=== PATIENT | male | born 1990 | race Caucasian/White ===

== ENCOUNTER 2020-04-02 15:32 | Emergency (ER) | payer OTHER, SELFPAY ==
[2020-04-02 15:35] VITALS: BP 151/109; PULSE 79; RESP 20; TEMP 36.8; O2SAT 96; BMI 46.0
--- NOTE | 2020-04-02 15:47 | XR_ITS ---
PROCEDURE: XR ANKLE LT MIN 3V CLINICAL INDICATION: PAIN COMPARISON: No exams were available for comparison FINDINGS: No fracture or dislocation. No lytic or blastic change. There is normal mineralization. The joint spaces are well-preserved. No significant degenerative/arthritic changes. No erosive changes evident. Other findings:None. IMPRESSION: No acute findings. Dictated by: Johnnie Zheng MD 04/02/2020 16:11 Johnnie Zheng MD in [place] 04/02/2020 16:11
--- NOTE | 2020-04-02 15:47 | XR_ITS ---
PROCEDURE: XR FOOT LT MIN 3V CLINICAL INDICATION: PAIN COMPARISON: No exams were available for comparison FINDINGS: No fracture or dislocation. No lytic or blastic change. There is normal mineralization. The joint spaces are well-preserved. No significant degenerative/arthritic changes. No erosive changes evident. Other findings:There is a type 2 os navicularis IMPRESSION: No acute findings. Dictated by: Johnnie Zheng MD 04/02/2020 16:11 Johnnie Zheng MD in [place] 04/02/2020 16:11
--- NOTE | 2020-04-02 15:52 | HMH.EDUTC ---
[facility] [place] Disposition Clinical Impression: Tendonitis Disposition: Home, Self-Care Condition on Discharge: Good Instructions: Tendonitis (Alternative Therapy), DI for Tendinitis, Ibuprofen Additional Instructions: *RICE, Rest the extremity, Ice 15-20 minutes 3-4 times daily, Compress- wear the estevan wrap as discussed as much as possible to help reduce swelling and pain, Elevate the extremity when at rest *Estevan wrap/Walking boot is for support and help control swelling, use it except in the shower. Be sure that is not to tight but not to loose either *Elevate when resting *Ibuprofen as prescribed as needed for pain an inflammation. If need something more can take Tylenol in between doses of Ibuprofen to help Immediately follow up with your family doctor for new or worsening of symptoms, or no noticeable improvement over the next 3-5 days Crutches to help take weight off foot Call Dr Solorzano office for appointment Return if needed Straight to ER if any life threatening symptoms Prescriptions: Ibuprofen [Ibuprofen 600mg Tablet] 600 mg PO Q6HP PRN #20 tab PRN Reason: Moderate Pain Transmission Status: Received by [facility] Referrals: Donavon Long MD [Primary Care Provider] - Karen Weathers DPM [Staff Physician] - As needed (Call office for appointment) Forms: Work/School Release Time of Disposition: 16:20 Medical Decision Making - Nicolás Inquiry Pt receiving controlled substance: No Nicolás was queried for this patient: No Vital Signs: 04/02/20 15:35 04/02/20 16:23 Temperature 98.2 F 98.2 F Temperature Source Oral Pulse Rate 79 Pulse Rate [Right Brachial] 79 Respiratory Rate 20 20 Blood Pressure 151/109 H Blood Pressure [Right Arm] 151/109 H Blood Pressure Mean [Right Arm] 123 Blood Pressure Source [Right Arm] Automatic Cuff Blood Pressure Position [Right Arm] Sitting 02 Sat by Pulse Oximetry 96 Oxygen Delivery Method Room Air - Radiology Data #1 Image(s): Ankle Image Reviewed: Yes I reviewed the patient's radiology image Preliminary Findings: No Fracture Seen #2 Image(s): Foot/Toes Image Reviewed: Yes I reviewed the patient's radiology image Preliminary Findings: No Fracture Seen - Physician Consults Physician Consulted: Sarahy Time: 16:21 Reason -: Podiatry Eval/Care Comment/Response: Called office and spoke with Bhavani Advised place him in walking bood, crutches and have him call office for appointment [facility] [place] HPI - General Stated complaint: sharp pain in Left foot Time Seen by Provider: 04/02/20 15:52 Mode of Arrival: Ambulatory Source of Information: Patient Limitations: No Limitations Description of Symptoms (Recalled from Triage Doc. by RN): PATIENT C/O PAIN TO DEVIN'S TENDON OF LEFT FOOT SINCE THURSDAY. PAIN WORSENS WHEN MOVING FOOT AND LIFTING LEG. PAIN DOES NOT RADIATE AND PT STATES IT FEEL LIKE NEEDLES . NO KNOWN INJURY HEENT Symptoms (Recalled from RN notes): No Resp Symptoms (Recalled from RN notes): No Skin Symptoms (Recalled from RN notes): No MS Symptoms (Recalled from RN notes): Yes Functional Status (Recalled from RN notes): WNL - History of Present Illness Provider Complaint: Patient state that he was walking around in [facility] on Thursday and noticed he was having some pain and soreness in his heel area States that it has continued to get worse States that he is not having pain when he sits still but when he moves his foot certain ways or walks on it feels like needles and has pain in his tendon area Denies known injury - Related Data Previous Rx's Medication Instructions Recorded Ibuprofen [Ibuprofen 600mg 600 mg PO Q6HP PRN #20 tab 04/02/20 Tablet] Allergies Allergy/AdvReac Type Severity Reaction Status Date / Time No Known Allergies Allergy Verified 02/17/18 12:59 - Worker's Comp Is this a Worker's Comp case?: No [facility] History - Hepatitis A Screen Drug use history?: No High risk sexual behaviors?: No History of
[2020-04-02 16:23] VITALS: BP 151/109; PULSE 79; RESP 20; TEMP 36.8; O2SAT 96
== END 2020-04-02 16:30 | disposition home or self-care (01) ==
PROVIDERS: Emergency Provider Nurse Practitioner; PCP Internal Medicine Adolescent Medicine
DX: M76.62 Achilles tendinitis, left leg (principal)
CPT/HCPCS: 29515; 73610; 73630; 99202; G0463

== ENCOUNTER 2020-09-23 15:52 | Emergency (ER) | payer OTHER, SELFPAY ==
[2020-09-23 16:53] VITALS: BP 149/93; PULSE 77; RESP 18; TEMP 36.8; O2SAT 98; BMI 47.4
--- NOTE | 2020-09-23 17:03 | HMH.EDUTC ---
[facility] [place] Clinical Impression: Headache Qualifiers: Headache type: unspecified Headache chronicity pattern: unspecified pattern Intractability: not intractable Qualified Code(s): R51.9 - Headache, unspecified Diarrhea Qualifiers: Diarrhea type: unspecified type Qualified Code(s): R19.7 - Diarrhea, unspecified Disposition: Home, Self-Care Condition on Discharge: Good Instructions: Preventing the Spread of Coronavirus Discharge Instructions Additional Instructions: You have been tested for COVID19. Please isolate yourself as if you are positive until test results received. Referrals: Donavon Long MD [Primary Care Provider] - Time of Disposition: 17:30 Medical Decision Making - Nicolás Inquiry Pt receiving controlled substance: No Vital Signs: 09/23/20 16:53 Temperature 98.3 F Temperature Source Oral Pulse Rate [Right] 77 Respiratory Rate 18 Blood Pressure [Right Arm] 149/93 H Blood Pressure Mean [Right Arm] 111 02 Sat by Pulse Oximetry 98 - Lab Data Lab results reviewed: Yes: I reviewed the patient's lab results. Lab Results 09/23/20 17:17: Strep Scn Rapid Clinic Negative Orders (Tests/Meds): ORDERS Category Date Time Status Covid-19 Nasal PCR ([facility]) Routine Lab 09/23/20 16:43 Received Strep Screen Confirmation Stat Micro 09/23/20 17:17 Received [facility] [place] HPI - General Stated complaint: dizzy, diah,fever Time Seen by Provider: 09/23/20 17:14 - History of Present Illness Provider Complaint: Headache, fever, body aches, diarrhea, fatigue X 2-3 days. No vomiting. No loss of taste or smell. No known exposure to COVID19 but works at a [employer]. Onset (ago): day(s) (3) Location: head Relieving factors: none Exacerbating factors: none Associated symptoms: fever/chills Treatments prior to arrival: none - Related Data Previous Rx's Medication Instructions Recorded Ibuprofen [Ibuprofen 600mg 600 mg PO Q6HP PRN #20 tab 04/02/20 Tablet] Allergies Allergy/AdvReac Type Severity Reaction Status Date / Time No Known Allergies Allergy Verified 02/17/18 12:59 [facility] History - Hepatitis A Screen Attestation statement:: This patient has been screened for Hepatitis A risk factors. I have reviewed the patient's past medical history: Yes Medical History: Denies:: Cancer, Diabetes Mellitus Type 1, Diabetes Mellitus Type 2, MRSA Other Surgeries: Yes: No Previous Surgery Amputation: No Fractures: No - Social History Smoking Status: Never smoker Alcohol Intake: never Alcohol Intake Frequency:: holidays/special occasions only Occupational Status: other Housing: house Household Members: family Family Hx:: Cancer ROS Obtained: Yes All systems reviewed & no additional complaints - Constitutional Constitutional: Reports body ache, Reports chills, Reports fever(s), Reports headache(s), Reports malaise - ENT Ears, Nose, Mouth, and Throat: Reports sore throat - Respiratory Respiratory: Reports cough - Gastrointestinal Gastrointestingal: Reports: loose stools Physical Exam - General General appearance: alert, in no apparent distress - Head Head exam: normocephalic - Eye Eye exam: Present: PERRL - ENT ENT exam: Present: TM's normal bilaterally - Expanded ENT Exam Throat exam: Present: tonsillar erythema - Neck Neck exam: Present: normal inspection. Absent: lymphadenopathy - Chest Chest inspection: Present: normal inspection, symmetric chest wall rise - Respiratory Respiratory exam: Present: normal lung sounds bilaterally - Cardiovascular Cardiovascular exam: Present: regular rate, normal rhythm - Abdominal Exam Abdominal exam: Present: soft, hyperactive bowel sounds - Neurological Exam Neurological exam: Present: alert, oriented X3 - Psychiatric Psychiatric exam: Present: normal affect, normal mood - Skin Skin exam: Present: warm, dry, intact
[2020-09-23 17:27] LABS: UTC Strep Screen (Rapid) Negative (Negative)
[2020-09-23 17:58] VITALS: BP 122/71; PULSE 76; RESP 16; TEMP 36.9; O2SAT 98
--- NOTE | 2020-09-24 11:46 | PC.NURSE ---
Pt called and got results of covid swab
== END 2020-09-23 17:47 | disposition home or self-care (01) ==
PROVIDERS: Emergency Provider Physician Assistant; PCP Internal Medicine Adolescent Medicine
DX: R42 Dizziness and giddiness (principal); Z20.822 Contact with and (suspected) exposure to COVID-19
CPT/HCPCS: 87880; 99202; G0463; U0003

== ENCOUNTER 2020-10-18 08:14 | Emergency (ER) | payer OTHER, SELFPAY ==
[2020-10-18 08:14] VITALS: BP 167/90; PULSE 74; RESP 18; TEMP 36.8; O2SAT 98; BMI 46.0
--- NOTE | 2020-10-18 08:39 | HMH.EDGENADL ---
ED Disposition Clinical Impression: Rash and nonspecific skin eruption Disposition: Home, Self-Care Condition on Discharge: Good Instructions: DI for Rash Additional Instructions: Prednisone and hydroxyzine as prescribed. Follow-up with primary care provider if not improving in 2 to 3 days. Prescriptions: hydrOXYzine pamoate [Hydroxyzine Pamoate] 50 mg PO Q6H 5 Days #20 cap Transmission Status: Pending to [facility] predniSONE [Prednisone 20mg Tab] 20 mg PO BID #10 tab Transmission Status: Pending to [facility] Referrals: Donavon Long MD [Primary Care Provider] - Forms: Work/School Release - Critical Care Critical Care Time: No Attestation: On 10/18/20, the high probability of a clinically significant, sudden or life threatening deterioration of the following system(s) required my full and direct attention, intervention and personal management. The time I documented below is in addition to time spent performing reported procedures but includes the following listed in this critical care notation. Medical Decision Making - Nicolás Inquiry Pt receiving controlled substance: No Vital Signs: 10/18/20 08:14 Temperature 98.3 F Temperature Source Oral Pulse Rate [Right] 74 Respiratory Rate 18 Blood Pressure [Right Arm] 167/90 H Blood Pressure Mean [Right Arm] 115 02 Sat by Pulse Oximetry 98 Oxygen Delivery Method Room Air General Adult HPI - General Chief complaint: Allergic Reaction Stated complaint: rash Time Seen by Provider: 10/18/20 08:39 Mode of Arrival: Family Vehicle Limitations: No Limitations Description of Symptoms (Recalled from ER Triage Doc. by RN): Patient c/o a rash that is diffuse throughout his body for the last two days. Patient denies any known allergen exposure. Patient denies any respiratory difficulty or facial swelling. - History of Present Illness HPI narrative: Complains of pruritic rash that started yesterday morning, initially on the dorsum of his left hand, but now is diffuse. No known exposures. No new medications. No history of similar rashes. No other associated symptoms. Denies fever, sore throat, URI symptoms, vomiting, diarrhea, joint pains or swelling, difficulty breathing, swelling of lips or throat. He has tried Benadryl without improvement. - Related Data Previous Rx's Medication Instructions Recorded Ibuprofen [Ibuprofen 600mg 600 mg PO Q6HP PRN #20 tab 04/02/20 Tablet] hydrOXYzine pamoate [Hydroxyzine 50 mg PO Q6H 5 Days #20 cap 10/18/20 Pamoate] predniSONE [Prednisone 20mg 20 mg PO BID #10 tab 10/18/20 Tab] Allergies Allergy/AdvReac Type Severity Reaction Status Date / Time No Known Allergies Allergy Verified 02/17/18 12:59 [facility] History - Hepatitis A Screen Drug use history?: No High risk sexual behaviors?: No History of sexually transmitted infection?: No Currently employed?: No Childcare worker?: No Do you have indoor plumbing?: Yes Do you have electricity?: Yes Attestation statement:: This patient has been screened for Hepatitis A risk factors. I have reviewed the patient's past medical history: Yes Medical History: Denies:: Cancer, Diabetes Mellitus Type 1, Diabetes Mellitus Type 2, MRSA Other Surgeries: Yes: No Previous Surgery Amputation: No Fractures: No - Social History Smoking Status: Never smoker Alcohol Intake: never Alcohol Intake Frequency:: holidays/special occasions only Occupational Status: other Housing: house Household Members: family Family Hx:: Cancer ROS Obtained: Yes All systems reviewed & no additional complaints - Constitutional Constitutional: Denies body ache, Denies chills, Denies fever(s) - ENT Ears, Nose, Mouth, and Throat: Denies difficulty swallowing, Denies nasal discharge, Denies sore throat, Denies throat swelling - Cardiovascular Cardiovascular: Denies chest pain - Respiratory Respiratory: Denies cough, Denies dyspnea - Gastrointes
[2020-10-18 09:19] VITALS: BP 146/71; PULSE 78; RESP 18; TEMP 36.8; O2SAT 98
== END 2020-10-18 09:11 | disposition home or self-care (01) ==
PROVIDERS: Emergency Provider Emergency Medicine; PCP Internal Medicine Adolescent Medicine
DX: R21 Rash and other nonspecific skin eruption (principal)
CPT/HCPCS: 99281

== ENCOUNTER 2021-03-12 06:17 | Emergency (ER) | payer BC, SELFPAY ==
[2021-03-12 06:19] VITALS: BP 152/102; PULSE 130; RESP 16; TEMP 37.8; O2SAT 97; BMI 47.4
--- NOTE | 2021-03-12 06:29 | XR_ITS ---
FINAL REPORT CLINICAL HISTORY: fever FINDINGS: Two views of the chest were obtained. The heart size and pulmonary vascularity are within normal limits. The mediastinum is normal. No acute pulmonary abnormality is identified. There is no pneumothorax. The bony thorax is intact. IMPRESSION: No active cardiopulmonary disease. Reviewed, Interpreted and Dictated by Rodrigue Dudley III, MD Transcribed by Bonnie Simental Authenticated by Rodrigue Dudley III, MD on 03/12/2021 07:42:[address] [facility]
[2021-03-12 06:46] LABS: Influenza A, PCR Not Detected (NotDetected); Influenza B, PCR Not Detected (NotDetected)
[2021-03-12 06:51] LABS: Basophils # 0.1 K/mm3 (0-0.2); Eosinophils # 0.1 K/mm3 (0.0-0.4); Eosinophils % 1.9 % (0.1-12.0); Hematocrit 55.3 % (42.0-52.0); Lymphocytes # 0.6 K/mm3 (0.7-4.5); Lymphocytes % 8.9 % (10-50); Mean Corpuscular HGB Conc 33.3 g/dL (31.8-35.4); Mean Corpuscular Hemoglobin 30.8 pg (27.0-31.2); Mean Corpuscular Volume 92.5 fl (80-94); Monocytes # 0.5 K/mm3 (0.1-1.0); Monocytes % 6.9 % (1.7-9.3); Neutrophils # 5.7 K/mm3 (1.8-7.8); Neutrophils % 81.3 % (37.0-80.0); Platelet Count 260 K/mm3 (142-424); Red Blood Count 5.97 M/mm3 (4.60-6.20); Red Cell Distribution Width 13.2 % (11.5-17.5)
--- NOTE | 2021-03-12 06:51 | HMH.EDWEAK ---
ED Disposition Clinical Impression: COVID-19 Disposition: Home, Self-Care Condition on Discharge: Good Instructions: DI for COVID-19 (Suspected or Confirmed ) Additional Instructions: use meds and see pcp for follow up Referrals: Donavon Long MD [Primary Care Provider] - - Critical Care Critical Care Time: No Attestation: On 03/12/21, the high probability of a clinically significant, sudden or life threatening deterioration of the following system(s) required my full and direct attention, intervention and personal management. The time I documented below is in addition to time spent performing reported procedures but includes the following listed in this critical care notation. Medical Decision Making - Medical Records Medical records reviewed: Yes: I reviewed the patient's medical records. - Nicolás Inquiry Pt receiving controlled substance: No Vital Signs: 03/12/21 06:19 Temperature 100.1 F H Temperature Source Oral Pulse Rate [Right] 130 H Respiratory Rate 16 Blood Pressure [Right Arm] 152/102 H Blood Pressure Mean [Right Arm] 118 02 Sat by Pulse Oximetry 97 - Lab Data Lab results reviewed: Yes: I reviewed the patient's lab results. Lab Results 03/12/21 06:35: WBC 7.0, RBC 5.97, Hct 55.3 H, MCV 92.5, MCH 30.8, MCHC 33.3, RDW 13.2, Plt Count 260, MPV 9.0, Neut % (Auto) 81.3 H, Lymph % (Auto) 8.9 L, Whitman % (Auto) 6.9, Eos % (Auto) 1.9, Baso % (Auto) 1.0, Neut # (Auto) 5.7, Lymph # (Auto) 0.6 L, Whitman # (Auto) 0.5, Eos # (Auto) 0.1, Baso # (Auto) 0.1, ESR 5 03/12/21 06:35: Sodium 141, Potassium 4.2, Chloride 97 L, Carbon Dioxide 31 H, Anion Gap 17.2 H, BUN 16, Creatinine 1.20, Estimated Creat Clear 95, Estimated GFR 71, Est GFR ( Amer) 85, Glucose 85, Calcium 10.3 H, Total Bilirubin 0.6, AST 39, ALT 59, Alkaline Phosphatase 73, C-Reactive Protein 5.5 H, Total Protein 9.8 H, Albumin 5.4 H, Globulin 4.4 H, Albumin/Globulin Ratio 1.2 03/12/21 06:35: SARS-CoV-2 (PCR) Detected A, Influenza A Untype (PCR) Not detected, Influenza Type B (PCR) Not detected Result diagrams: 03/12/21 06:35 03/12/21 06:35 Orders (Tests/Meds): ED MEDICATIONS Generic Name Dose Route Start Last Admin Trade Name Freq PRN Reason Stop Dose Admin Sodium Chloride 1,000 mls @ 999 mls/hr 03/12/21 06:45 03/12/21 06:40 Sod Chlor 0.9% 1000ml Bag IV 03/12/21 07:45 999 mls/hr .Q1H1M LUCILA Administration Discontinued Medications Generic Name Dose Route Start Last Admin Trade Name Freq PRN Reason Stop Dose Admin Dexamethasone Sodium Phosphate 10 mg 03/12/21 06:31 03/12/21 06:39 Dexamethasone 4mg/Ml 1ml Vial IV 03/12/21 06:32 10 mg ONCE ONE Administration Ketorolac Tromethamine 30 mg 03/12/21 06:31 03/12/21 06:40 Ketorolac 30mg/Ml Vial IV 03/12/21 06:32 30 mg ONCE ONE Administration ORDERS Category Date Time Status XR chest 2V Stat Exams 03/12/21 06:29 Taken C-Reactive Protein Stat Lab 03/12/21 06:35 Results Complete Blood Count Auto Diff Stat Lab 03/12/21 06:35 Results Comprehensive Metabolic Panel Stat Lab 03/12/21 06:35 Results Erythrocyte Sedimentation Rate Stat Lab 03/12/21 06:35 Results Procalcitonin Stat Lab 03/12/21 06:35 Results UA [Urinalysis and Microscopic] Stat Lab 03/12/21 06:58 Received - Radiology Data #1 Image(s): Chest Image Reviewed: Yes I reviewed the patient's radiology image Preliminary Findings: Normal/NAD Medical Decision Narrative: pt has covid-19 and stable exam and labs Weakness HPI - General Chief complaint: Weakness Stated complaint: sore throat, dizzy, SOA, CUTLER Time Seen by Provider: 03/12/21 06:40 Mode of Arrival: Ambulatory Source of Information: Patient, Medical Record Limitations: No Limitations Description of Symptoms (Recalled from ER Triage Doc. by RN): pt c/o SOA, cough, body aches, CUTLER that started this morning - History of Present Illness HPI Narrative: sore throat with uri sx which started yesterday - re
[2021-03-12 06:57] LABS: Alanine Aminotransferase 59 U/L (12-78); Albumin Level 5.4 g/dl (3.5-5.0); Albumin/Globulin Ratio 1.2 (1.1-1.8); Alkaline Phosphatase 73 U/L (38-126); Anion Gap 17.2 mEq/L (5-15); Aspartate Amino Transferase 39 U/L (17-59); Bilirubin,Total 0.6 mg/dl (0.2-1.3); Blood Urea Nitrogen 16 mg/dl (9-20); Calcium 10.3 mg/dl (8.4-10.2); Carbon Dioxide 31 mmol/L (22.0-30.0); Chloride 97 mmol/L (98-107); Creatinine Clearance Estimated 95 mL/min (50-200); Estimated Glomerular Filt Rate 71 ml/min (>60); GFR (African American) 85 ML/MIN (>60); Globulin 4.4 g/dL (1.3-3.2); Glucose 85 mg/dl (74-100); Potassium 4.2 mmoL/L (3.5-5.1); Sodium 141 mmol/L (136-145); Total Protein,Serum 9.8 g/dl (6.3-8.2)
[2021-03-12 07:03] LABS: C-Reactive Protein 5.5 mg/L (0-4)
[2021-03-12 07:09] LABS: Microscopic, Urine URINE MICROSCOPIC (MICROSCOPIC)
[2021-03-12 07:11] LABS: Coronavirus 19, PCR Detected (NotDetected)
[2021-03-12 07:14] LABS: Erythrocyte Sedimentation Rate 5 mm/hr (0-15)
[2021-03-12 07:17] LABS: Procalcitonin 0.059 ng/mL (0.0-2.0)
[2021-03-12 07:17] LABS: Appearance,Urine CLEAR (Clear); Bilirubin,Urine Negative (Negative); Blood, Urine 2+ (Negative); Color,Urine YELLOW (Yellow); Glucose,Urine (UA) Negative (Negative); Ketones,Urine Negative (Negative); Leukocyte Esterase,Urine Negative (Negative); Nitrate,Urine Negative (Negative); Protein,Urine Negative (Negative); Urobilinogen,Urine 0.2 EU/dl (0.2)
[2021-03-12 07:22] LABS: Hemoglobin 18.4 g/dL (14.1-18.0)
[2021-03-12 07:23] LABS: Squamous Epithelial Cell,Urine Occasional #/hpf (0-5)
[2021-03-12 07:38] VITALS: BP 148/89; PULSE 93; RESP 18; TEMP 37.2; O2SAT 95
== END 2021-03-12 07:40 | disposition home or self-care (01) ==
PROVIDERS: Emergency Provider Emergency Medicine; PCP Internal Medicine Adolescent Medicine
DX: U07.1 COVID-19 (principal)
CPT/HCPCS: 71046; 80053; 81001; 84145; 85025; 85651; 86140; 96365; 96375; 99283; C9803; U0003; U0005

== ENCOUNTER 2022-06-03 05:49 | Emergency (ER) | payer BC, SELFPAY ==
[2022-06-03 05:50] VITALS: BP 162/90; PULSE 79; RESP 20; TEMP 36.9; O2SAT 98; BMI 41.1
[2022-06-03 06:00] VITALS: PULSE 72; O2SAT 97
[2022-06-03 06:08] VITALS: BMI 41.1
--- NOTE | 2022-06-03 06:08 | XR_ITS ---
PROCEDURE INFORMATION: Exam: XR Left Ribs Exam date and time: 06/03/2022 6:06 AM Age: 31 years old Clinical indication: Chest wall pain; Patient HX: PT states left sided pain with deep breathing and movement TECHNIQUE: Imaging protocol: Radiologic exam of the left ribs. Views: 2 views. COMPARISON: CR XR CHEST 2V 06/03/2022 6:04 AM FINDINGS: Bones/joints: Normal. Soft tissues: Normal. IMPRESSION: No acute findings.
--- NOTE | 2022-06-03 06:08 | XR_ITS ---
PROCEDURE INFORMATION: Exam: XR Chest Exam date and time: 06/03/2022 6:04 AM Age: 31 years old Clinical indication: Left-sided; Patient HX: C/O left sided pain with deep breathing and movement TECHNIQUE: Imaging protocol: Radiologic exam of the chest. Views: 2 views. COMPARISON: CR XR CHEST 2V 03/12/2021 6:28 AM FINDINGS: Lungs: No focal airspace disease. Pleural spaces: Unremarkable. No pleural effusion. No pneumothorax. Heart/Mediastinum: Cardiomediastinal silhouette is within normal limits. Bones/joints: Unremarkable. IMPRESSION: No acute cardiopulmonary abnormality.
--- NOTE | 2022-06-03 06:11 | PC.NURSE ---
Pt over to X-ray
[2022-06-03 06:30] VITALS: PULSE 73; O2SAT 98
--- NOTE | 2022-06-03 07:02 | PC.NURSE ---
Called radiology to check status of xr read, they are chatting vrad
--- NOTE | 2022-06-03 07:06 | CT_ITS ---
FINAL REPORT TECHNIQUE: The patient was injected with IV contrast. Axial images were obtained through the chest in a PE protocol. 3-D reconstruction images were also performed. Individualized dose reduction techniques using automated exposure control or adjustment of the MA and/or KV according to patient's size were employed. CLINICAL HISTORY: pain with deep inspiration, Left lower rib back FINDINGS: Mediastinal vasculature is adequately opacified. No pulmonary artery filling defects are identified to suggest PE. There is no aortic dissection. There is no axillary adenopathy. There is no hilar or mediastinal adenopathy. The heart size is normal. There is no pericardial or pleural effusion. Limited images of the upper abdomen are unremarkable. No suspicious infiltrate or nodule is identified. IMPRESSION: No pulmonary embolus or dissection. Reviewed, Interpreted and Dictated by Remi Mar MD Transcribed by Alma Chew Authenticated and [facility]
--- NOTE | 2022-06-03 07:12 | HMH.EDGENADL ---
Discharge Plan Disposition Patient Disposition: Home, Self-Care Condition: Good Prescriptions Prescriptions: New diclofenac potassium 25 mg tablet 25 mg PO BID 10 Days Qty: 20 0RF cyclobenzaprine 10 mg tablet 10 mg PO HS Qty: 14 0RF Referrals Follow up/Referrals: Donavon Long MD [Primary Care Provider] - See instructions Clinical Impressions Clinical Impression: Pleurisy Instructions Patient Instructions: DI for Pleurisy Print Language Print Language: Yakut Discharge ED Provider: Gallito MARTEL)George Adult HPI <George MARTEL)MD - Last Filed: 06/03/22 08:50> General Chief complaint: PAIN Stated complaint: upper abdominal pain; middle back pain Time Seen by Provider: 06/03/22 07:00 Mode of Arrival: Family Vehicle Source of Information: Patient, Spouse and Medical Record Limitations: No Limitations Description of Symptoms (Recalled from ER Triage Doc. by RN): Pt c/o burning pain to lower left ribs & left side of mid back. Denies any trauma, falls, or injury. The pain is reproducible with palpation, movement, and when taking a deep breath. Denies chest pain or inspiratory pain to lungs. Denies any fever, chills, or n/v/d. Denies cough. History of Present Illness HPI narrative: lt costal pain with sob and inc with insp - no rash or fever Onset (ago): day(s) Location: chest Severity: moderate Associated symptoms: denies other symptoms Related Data Previous Rx's Medication Instructions Recorded cyclobenzaprine 10 mg tablet 10 mg PO HS #14 tabs 06/03/22 diclofenac potassium 25 mg tablet 25 mg PO BID 10 days #20 tabs 06/03/22 Allergies Allergy/AdvReac Type Severity Reaction Status Date / Time No Known Allergies Allergy Verified 12/11/20 11:18 PFSH <George Conti MD (ED) - Last Filed: 06/03/22 08:50> [facility] Disclaimer: The information contained in this section may have been updated after the patient was seen, as this information can be updated by other users. Social History Smoking Status: Never smoker alcohol intake: never current occupational status: other Travel in the last 8 weeks: None household members: family housing: house <George MARTEL)MD - Last Filed: 06/03/22 08:50> ROS Obtained: Yes All systems reviewed & no additional complaints except as documented Physical Exam <George Conti (ED)MD - Last Filed: 06/03/22 08:50> General General appearance: alert Head Head exam: normocephalic Eye Eye exam: Present PERRL and EOMI ENT ENT exam: Present mucous membranes moist Neck Neck exam: Present trachea midline Chest Chest inspection: Present tenderness; Absent rash Respiratory Respiratory exam: Present normal lung sounds bilaterally; Absent respiratory distress Cardiovascular Cardiovascular exam: Present regular rate; Absent systolic murmur Abdominal Exam Abdominal exam: Present soft; Absent tenderness Extremities Exam Extremities exam: Present full ROM Neurological Exam Neurological exam: Present alert, oriented X3 and CN II-XII intact; Absent motor sensory deficit Psychiatric Psychiatric exam: Present normal affect Skin Skin exam: Absent rash Medical Decision Making <George Conti (ED)MD - Last Filed: 06/03/22 08:50> Medical Records Medical records reviewed: Yes I reviewed the patient's medical records. Nicolás Inquiry Pt receiving controlled substance: No Vital Signs: 06/03/22 05:50 06/03/22 06:00 06/03/22 06:30 Temperature 98.5 F Temperature Source Oral Pulse Rate 72 73 Pulse Rate [Right] 79 Respiratory Rate 20 Blood Pressure Blood Pressure [Right Arm] 162/90 H Blood Pressure Mean [Right Arm] 114 Blood Pressure Source Blood Pressure Source [Right Arm] Automatic Cuff Blood Pressure Position 02 Sat by Pulse Oximetry 98 97 98 Oxygen Delivery Method Room Air 06/03/22 08:36 Temperature Temperature Source Pulse Rate 67 Pulse Rate [Right] Respiratory Rate 18 B
--- NOTE | 2022-06-03 07:15 | PC.NURSE ---
notified radiology of ct ordered
--- NOTE | 2022-06-03 07:20 | PC.NURSE ---
Saline lock established at this time and updated on POC and what tests MD was going to order. Call light within reach and patient had no other needs.
[2022-06-03 07:27] LABS: Basophils # 0.1 K/mm3 (0-0.2); Basophils % 0.9 % (0.1-2.0); Eosinophils # 0.2 K/mm3 (0.0-0.4); Eosinophils % 2.8 % (0.1-12.0); Hematocrit 49.1 % (42.0-52.0); Lymphocytes # 2.6 K/mm3 (0.7-4.5); Mean Corpuscular HGB Conc 32.6 g/dL (31.8-35.4); Mean Corpuscular Hemoglobin 29.7 pg (27.0-31.2); Mean Corpuscular Volume 91.2 fl (80-94); Mean Platelet Volume 8.4 fl (7.4-10.4); Monocytes # 0.6 K/mm3 (0.1-1.0); Monocytes % 8.1 % (1.7-9.3); Neutrophils # 3.9 K/mm3 (1.8-7.8); Neutrophils % 53.2 % (37.0-80.0); Platelet Count 223 K/mm3 (142-424); Red Blood Count 5.39 M/mm3 (4.60-6.20); Red Cell Distribution Width 13.3 % (11.5-17.5); White Blood Count 7.4 K/mm3 (4.8-10.8)
[2022-06-03 07:33] LABS: Chloride 102 mmol/L (98-107); Potassium 4.5 mmoL/L (3.5-5.1); Sodium 138 mmol/L (136-145)
[2022-06-03 07:36] LABS: Alanine Aminotransferase 30 U/L (12-78); Albumin Level 4.4 g/dl (3.5-5.0); Albumin/Globulin Ratio 1.4 (1.1-1.8); Alkaline Phosphatase 53 U/L (38-126); Anion Gap 9.5 mEq/L (5-15); Aspartate Amino Transferase 26 U/L (17-59); Bilirubin,Total 0.4 mg/dl (0.2-1.3); Blood Urea Nitrogen 21 mg/dl (9-20); Calcium 9.2 mg/dl (8.4-10.2); Carbon Dioxide 31 mmol/L (22.0-30.0); Creatinine Clearance Estimated 126 mL/min (50-200); Estimated Glomerular Filt Rate 98 ml/min (>60); GFR (African American) 118 ML/MIN (>60); Globulin 3.1 g/dL (1.3-3.2); Glucose 85 mg/dl (74-100); Total Protein,Serum 7.5 g/dl (6.3-8.2)
--- NOTE | 2022-06-03 07:50 | PC.NURSE ---
pt return from CT
[2022-06-03 08:36] VITALS: BP 144/99; PULSE 67; RESP 18; O2SAT 99
--- NOTE | 2022-06-03 08:39 | PC.NURSE ---
contacted rad to check on status of CT report, states she will check on it.
--- NOTE | 2022-06-03 09:03 | PC.NURSE ---
checked on pt at this time, pt resting in bed, visitor at BS, states no needs at this time. Updated pt we are waiting on CT results
--- NOTE | 2022-06-03 09:04 | PC.NURSE ---
spoke with radiology again at this time, report CT is in locked status so she be read soon.
[2022-06-03 09:32] VITALS: BP 143/91; PULSE 69; RESP 18; TEMP 36.7; O2SAT 99
== END 2022-06-03 09:34 | disposition home or self-care (01) ==
PROVIDERS: Emergency Provider Emergency Medicine; PCP Internal Medicine Adolescent Medicine
DX: R09.1 Pleurisy (principal); R10.10 Upper abdominal pain, unspecified
CPT/HCPCS: 71046; 71100; 71275; 80053; 85025; 96374; 96375; 99284; 99285; Q9967

== ENCOUNTER 2022-10-21 01:58 | Emergency (ER) | payer BC, SELFPAY ==
[2022-10-21 02:00] VITALS: BP 139/95; PULSE 90; RESP 20; TEMP 37.1; O2SAT 97; BMI 38.3
--- NOTE | 2022-10-21 02:09 | PC.NURSE ---
in room speaking with patient at this time.
--- NOTE | 2022-10-21 02:16 | HMH.EDGENADL ---
Discharge Plan Disposition Patient Disposition: Home, Self-Care Condition: Good Prescriptions Prescriptions: New amoxicillin 500 mg capsule 500 mg PO Q8H 7 Days Qty: 21 0RF No Action diclofenac potassium 25 mg tablet 25 mg PO BID 10 Days Qty: 20 0RF cyclobenzaprine 10 mg tablet 10 mg PO HS Qty: 14 0RF Referrals Follow up/Referrals: Donavon Long MD [Primary Care Provider] - See instructions Activity Restrictions/Add. Instructions Additional Instructions/Restrictions: Please take antibiotics as prescribed for right ear infection. Please follow-up with your primary care provider. Please return to the emergency department if you develop any new or worsening symptoms or become concerned for your health. Clinical Impressions Clinical Impression: Otitis media of right ear Discharge ED Provider: Mendoza Wilson Adult HPI General Chief complaint: Upper Respiratory Infection Stated complaint: throat swelling, facial numbness, ear pain Time Seen by Provider: 10/21/22 02:08 Mode of Arrival: Ambulatory Source of Information: Patient Limitations: No Limitations Description of Symptoms (Recalled from ER Triage Doc. by RN): pt reports 2 days of right ear and throat pain, states its hurts to swallow, chills and fever History of Present Illness HPI narrative: 32-year-old male reported previously healthy presents with couple days of throat pain and right-sided facial pain, reports that he had onset of difficulty breathing that lasted approximate 10 to 15-minute with associated right-sided neck/throat pain and right ear pain. This prompted him to come in tonight. No reported fever at home. Patient has been taking [id number] cold medication but has not had any other medications. Currently has no difficulty breathing. Related Data Previous Rx's Medication Instructions Recorded cyclobenzaprine 10 mg tablet 10 mg PO HS #14 tabs 06/03/22 diclofenac potassium 25 mg tablet 25 mg PO BID 10 days #20 tabs 06/03/22 amoxicillin 500 mg capsule 500 mg PO Q8H 7 days #21 caps 10/21/22 Allergies Allergy/AdvReac Type Severity Reaction Status Date / Time No Known Allergies Allergy Verified 12/11/20 11:18 [facility] Disclaimer: The information contained in this section may have been updated after the patient was seen, as this information can be updated by other users. Social History Smoking Status: Never smoker alcohol intake: never current occupational status: other Travel in the last 8 weeks: None household members: family housing: house ROS Obtained: Yes All systems reviewed & no additional complaints except as documented Physical Exam General General appearance: alert and in no apparent distress Head Head exam: atraumatic and normocephalic Eye Eye exam: Present normal appearance, PERRL and EOMI ENT ENT exam: Present normal oropharynx (Mild oropharyngeal erythema with bilateral tonsillar enlargement, no exudate, no pillar depression) and other (Right TM erythematous, bulging, opaque. Canal normal, no mastoid tenderness.) Neck Neck exam: Present normal inspection, full ROM and lymphadenopathy (Small, right-sided) Chest Chest inspection: Present normal inspection and symmetric chest wall rise; Absent tenderness Respiratory Respiratory exam: Present normal lung sounds bilaterally; Absent respiratory distress Cardiovascular Cardiovascular exam: Present regular rate and normal rhythm Abdominal Exam Abdominal exam: Present soft; Absent distention, tenderness or guarding Extremities Exam Extremities exam: Present normal inspection; Absent edema or joint swelling Back Exam Back exam: Present normal inspection; Absent tenderness Neurological Exam Neurological exam: Present alert and oriented X3; Absent motor sensory deficit Psychiatric Psychiatric exam: Present normal affect and normal mood Skin Skin exam: Present warm, dry and normal color Lymphatic Lymphatic Findings: no adenopa
[2022-10-21 02:30] VITALS: BP 137/81; PULSE 87; RESP 18; TEMP 37.1; O2SAT 97
[2022-10-21 02:32] VITALS: BP 139/99; PULSE 90; RESP 20; TEMP 37.1
== END 2022-10-21 02:34 | disposition home or self-care (01) ==
PROVIDERS: Emergency Provider Emergency Medicine; PCP Internal Medicine Adolescent Medicine
DX: H66.91 Otitis media, unspecified, right ear (principal); R22.1 Localized swelling, mass and lump, neck
CPT/HCPCS: 99283

== ENCOUNTER 2022-12-04 05:08 | Emergency (ER) | payer BC, SELFPAY ==
[2022-12-04 05:09] VITALS: BP 157/97; PULSE 68; RESP 18; TEMP 36.6; O2SAT 97; BMI 39.6
--- NOTE | 2022-12-04 05:30 | HMH.EDGENADL ---
Discharge Plan Disposition Patient Disposition: Home, Self-Care Prescriptions Prescriptions: New lidocaine 5 % adhesive patch,medicated 1 patch topical DAILY PRN (Reason: pain) Qty: 30 0RF Rx Instructions: leave on most painful area for up to 12 hrs methocarbamol 500 mg tablet 500 mg PO Q6H PRN (Reason: pain) Qty: 30 0RF No Action diclofenac potassium 25 mg tablet 25 mg PO BID 10 Days Qty: 20 0RF cyclobenzaprine 10 mg tablet 10 mg PO HS Qty: 14 0RF amoxicillin 500 mg capsule 500 mg PO Q8H 7 Days Qty: 21 0RF Referrals Follow up/Referrals: Donavon Long MD [Primary Care Provider] - See instructions Activity Restrictions/Add. Instructions Additional Instructions/Restrictions: You have strained the muscles in the extensor part of your left forearm. This is an overuse injury. This will only heal if you reduce the use of the arm and allow those muscles and ligaments time to heal. Recommend not lifting any weight that worsens the pain. Recommend limiting the movement of the wrist and forearm as needed to limit pain. Use wrist brace as needed. Clinical Impressions Clinical Impression: Muscle strain of forearm Qualifiers: Encounter type: initial encounter Laterality: left Qualified Code(s): S56.912A - Strain of unspecified muscles, fascia and tendons at forearm level, left arm, initial encounter Stand Alone Forms Stand Alone Forms: Work/School Release Discharge ED Provider: Mendoza Wilson General Adult HPI General Chief complaint: Extremity Injury, Upper Stated complaint: left arm injury-accident Time Seen by Provider: 12/04/22 05:15 Mode of Arrival: Ambulatory Source of Information: Patient Limitations: Physical Limitations Description of Symptoms (Recalled from ER Triage Doc. by RN): Pt presents with left arm pain that began yesterday while working. Pt feels it is swollen and hurts only with rotation. Denies any known injury. History of Present Illness HPI narrative: 32-year-old male, works in a factory, presents with worsening left-sided forearm pain. Reports pain and swelling is present in the dorsal/extensor mid forearm. Pain is worse with wrist extension, forearm supination. He reports that it felt a bit sore and then became suddenly more tender Related Data Previous Rx's Medication Instructions Recorded cyclobenzaprine 10 mg tablet 10 mg PO HS #14 tabs 06/03/22 diclofenac potassium 25 mg tablet 25 mg PO BID 10 days #20 tabs 06/03/22 amoxicillin 500 mg capsule 500 mg PO Q8H 7 days #21 caps 10/21/22 lidocaine 5 % topical patch 1 patch topical DAILY PRN pain #30 12/04/22 ea methocarbamol 500 mg tablet 500 mg PO Q6H PRN pain #30 tabs 12/04/22 Allergies Allergy/AdvReac Type Severity Reaction Status Date / Time No Known Allergies Allergy Verified 12/11/20 11:18 [facility] Disclaimer: The information contained in this section may have been updated after the patient was seen, as this information can be updated by other users. Social History Smoking Status: Never smoker alcohol intake: never current occupational status: other Travel in the last 8 weeks: None household members: family housing: house ROS Obtained: Yes All systems reviewed & no additional complaints except as documented Physical Exam General General appearance: alert and in no apparent distress Head Head exam: atraumatic and normocephalic Eye Eye exam: Present normal appearance, PERRL and EOMI ENT ENT exam: Present normal oropharynx and normal external ear exam Neck Neck exam: Present normal inspection and full ROM Chest Chest inspection: Present normal inspection and symmetric chest wall rise; Absent tenderness Respiratory Respiratory exam: Present normal lung sounds bilaterally; Absent respiratory distress Cardiovascular Cardiovascular exam: Present regular rate and normal rhythm Abdominal Exam Abdominal exam: Present soft; Absent distention, tenderness or guarding Extr
[2022-12-04 05:34] VITALS: BP 151/91; PULSE 60; RESP 18; TEMP 36.6; O2SAT 97
== END 2022-12-04 05:44 | disposition home or self-care (01) ==
PROVIDERS: Emergency Provider Emergency Medicine; PCP Internal Medicine Adolescent Medicine
DX: S56.912A Strain of unspecified muscles, fascia and tendons at forearm level, left arm, initial encounter (principal); X50.9XXA Other and unspecified overexertion or strenuous movements or postures, initial encounter
CPT/HCPCS: 99283